=== PATIENT | female | born 1970 | race African-American/Black ===

== ENCOUNTER 2021-11-01 23:19 | Emergency (ER) | payer SELFPAY ==
[~2021-11-01] VITALS: Ht 149.9 cm; Wt 68.0 kg
--- NOTE | 2021-11-01 23:20 | NUR ---
Dr. Jacobson at bedside for MSE.
[2021-11-01] MEDS ORDERED: ONDANSETRON ODT 4 MG TAB.RAPDIS SL ONE (23:30)
[2021-11-01] MEDS ORDERED: ONDANSETRON ODT 4 MG TAB.RAPDIS ONE (23:38)
[2021-11-01] MEDS ORDERED: predniSONE 20 MG TABLET ONE (23:38)
[2021-11-01] MEDS ORDERED: ACETAMINOPHEN/CODEINE 120-12 MG PER 5 ML LIQUID UDC ONE (23:39)
[2021-11-01] MEDS ORDERED: predniSONE 20 MG TABLET PO ONE (23:45)
[2021-11-01] MEDS ORDERED: ACETAMINOPHEN/CODEINE 120-12 MG PER 5 ML LIQUID UDC PO ONE (23:45)
--- NOTE | 2021-11-01 23:46 | NUR ---
Xray at bedside.
[2021-11-01] MEDS ORDERED: PRED20TA PO (23:52)
--- NOTE | 2021-11-02 00:31 | NUR ---
Patient discharged to home in stable condition. Written and verbal after care instructions given. Patient verbalizes understanding of instructions. Stressed follow up or return to ER for worsening s/s. Patient out of ER with steady gait, no acute signs of distress, VSS, all belongings taken, provided with copies of lab results.
[2021-11-02 00:32] VITALS: BP 140/102
== END 2021-11-02 00:32 | disposition home or self-care (01) ==
LOC: ER 23:19
DX: J20.9 Acute bronchitis, unspecified (principal); Z20.822 Contact with and (suspected) exposure to COVID-19; Z88.0 Allergy status to penicillin; Z88.8 Allergy status to other drugs, medicaments and biological substances; I51.7 Cardiomegaly; R03.0 Elevated blood-pressure reading, without diagnosis of hypertension
CPT/HCPCS: 99284; 71045; 87426; 87400; J7512; Q0162